=== PATIENT | female | born 1930 | race Caucasian/White ===

== ENCOUNTER 2017-02-08 12:19 | Inpatient (IN) | payer MEDICARE, OTHER ==
--- NOTE | ~2017-02-08 | EKG ---
PATIENT: MACEY JENSEN UNIT #: [id number] Ventricular Rate: 83 BPM Atrial Rate: 78 BPM QRS Duration: 158 ms Q-T Interval: 430 ms QTC Calculation(Bezet): 505 ms Calculated R [place]: -80 degrees Calculated T [place]: 66 degrees Diagnosis Line: Ventricular-paced rhythm with occasional Premature Diagnosis Line: ventricular complexes Diagnosis Line: Abnormal ECG Diagnosis Line: When compared with ECG of 30-SEP-2016 06:36, Diagnosis Line: Electronic ventricular pacemaker has replaced Diagnosis Line: Atrial fibrillation Diagnosis Line: Confirmed by ROSIE KITCHEN MD ([id number]) on 02/08/2017 Diagnosis Line: 10:47:04 PM INTERPRETING MD: IMTIAZ JAY
--- NOTE | ~2017-02-08 | HP ---
Unit #: [id number] #: [id number] Patient: MACEY JENSEN [id number] [facility] [address] [place], [place] [address] [id number] MR#: [id number] NAME: MACEY JENSEN ROOM: Age: 87 Sex: F Admission Date: 02/08/2017 : 1930 Attending Physician: Stanley De Jesus D.O. Primary Care Physician: Milagros Toribio M.D. HISTORY AND PHYSICAL CHIEF COMPLAINT Palpitations. HISTORY OF PRESENT ILLNESS The patient is an 87-year-old female with past medical history of hypertension, hyperlipidemia, coronary artery disease, CHF, sick sinus syndrome, atrial fibrillation, chronic anticoagulation, colonic AVM, diverticular disease, rheumatoid arthritis, who presented to the emergency department for evaluation of the above. The patient states that she has been feeling increasingly generally weak for about four to five days. She states that she has had palpitations which is not a new problem. She denies any chest pain. She has not had any falls or syncopal episodes. She has had decreased appetite for several months. She states that she has lost 30 pounds over the past two years. She denies any vomiting. She did have some diarrhea last week but that has resolved. She was treated for a sinus infection by her primary care physician with an unknown antibiotic recently. She completed the course of antibiotics. She has had some changes in her medications specifically decreasing the dose of carvedilol as well as Lasix. Upon arrival in the emergency department, the patient's pulse and blood pressure were 105 and 168/95 respectively. Laboratory is notable for a sodium of 122. She is being admitted to [facility] for evaluation and further treatment. PAST MEDICAL HISTORY 1. Admission to [facility] 09/29 through 10/01/2016 for shortness of breath thought to be secondary to heart failure. 2. Congestive heart failure. Per Cardiology consultation note, the patient had an echocardiogram 03/22/2016 that showed an ejection fraction of 55%. Mild aortic regurgitation, [id number] mitral regurgitation and tricuspid regurgitation. Right ventricular systolic pressure of approximately 36 mmHg. 3. Hypertension. 4. Hyperlipidemia. 5. Coronary artery disease. 6. Sick sinus syndrome with atrial fibrillation. She is status post pacemaker placement. She is also on chronic anticoagulation with Pradaxa. 7. History of colonic arteriovenous malformation. 8. Rheumatoid arthritis. Unit #: [id number] #: [id number] Patient: MACEY JENSEN PAST SURGICAL HISTORY 1. EGD and colonoscopy. 2. Tonsillectomy. 3. D and C. 4. Bilateral knee surgery. ALLERGIES 1. Ampicillin. 2. Hexachlorophene. 3. Atorvastatin. 4. Welchol. 5. Zetia. 6. Black dye. 7. IV dye. HOME MEDICATIONS Include: 1. Acetaminophen. 2. Pradaxa. 3. Zofran. 4. Coreg. 5. Colace. 6. MiraLAX. 7. Lasix. 8. Pepcid. 9. Aldactone. 10. Nitroglycerin. Home medications will need to be reviewed and verified. SOCIAL HISTORY The patient lives in assisted living. She is a former smoker. There is no alcohol use. She walks with a walker. Her code status is a FULL CODE. FAMILY HISTORY Notable for cerebrovascular accident. REVIEW OF SYSTEMS A complete review of systems is negative except as indicated in the HPI. Review of [facility] shows that the patient was seen by Nephrology on 05/05/2016 for hyponatremia. At that time, sodium was 123 and was thought to be hypovolemic in etiology. PHYSICAL EXAMINATION VITAL SIGNS: Temperature not recorded, pulse 105, respirations 18, blood pressure 168/95, oxygen saturation 96% on room air. GENERAL: The patient is a very pleasant female who is awake and alert in no acute distress. HEENT: Head is atraumatic. Mucous membranes are moist. NECK: Supple. Trachea is midline. LUNGS: Relatively clear to auscultation bilaterally with no increased work of breathing. HEART: Regular rate and rhythm. ABDOMEN: Soft, nontender. Bowel sounds present in all four quadrants. EXTREMITIES: Nontender with no pedal edema. NEUROLOGIC: Patient is awake and alert. She is oriented x3. She follows commands. PSYCHIATRIC: Mood and affect are normal. Patient is cooperative. Unit #: [id number] #: [id number] Patient: MACEY JENSEN SKIN OF EXAMINED AREAS: Warm and dry. DIAGNOSTIC STUDIES LABORATORY: Troponin less than 0.05. Urinalysis notable for trace leukocyte esterase. Comprehensive metabolic panel notable for sodium 122, chloride 89, magnesium 1.8. INR 1.2. TSH 0.56. BNP 411. Complete blood count is essentially normal. IMAGING: Chest x-ray shows mild cardiomegaly. CARDIOVASCULAR: EKG shows paced rhythm with occasional PVCs and a rate of 83 beats per minute. ASSESSMENT The patient is an 87-year-old female with: 1. General weakness. 2. Hyponatremia. The patient appears somewhat volume depleted. She has had decreased appetite as well as diarrhea. 3. Hypertension. 4. Hyperlipidemia. 5. Coronary artery disease. 6. Congestive heart failure with ejection fraction as noted above. 7. Sick sinus syndrome with atrial fibrillation, status post pacemaker placement. 8. Chronic anticoagulation with Pradaxa. 9. History of colonic arteriovenous malformation. 10. Diverticular disease. 11. Rheumatoid arthritis. 12. Former smoker. PLAN 1. Admit to intermediate level. 2. Healthy-heart diet if passes bedside swallow. 3. Normal saline at 75 mL per hour. 4. Fall precautions. 5. Bedrest. 6. PT/OT to evaluate and treat. 7. Urine sodium and osmolality. 8. Serum osmolality. 9. Repeat BMP later this evening to follow up hyponatremia. 10. Review medications that could be contributing to hyponatremia when medication reconciliation is available. 11. Consult Dr. Smyth regarding hyponatremia. 12. Serial cardiac enzymes. 13. Strict I's and O's. 14. Check temperature. 15. Repeat labs in the morning. 16. SCDs for DVT prophylaxis. 17. Additional workup and consultants based on above. Dictated by Unit #: [id number] #: [id number] Patient: MACEY JENSEN M.D. AW/jennifer TD: 02/08/2017 17:12 JOB #: [id number] HISTORY AND PHYSICAL Page 1 of 1 X Nabila Bernal MD HISTORY AND PHYSICAL
--- NOTE | ~2017-02-08 | DS ---
Unit #: [id number] #: [id number] Patient: MACEY JENSEN [id number] [address] [place], [place] [address] [id number] MR#: [id number] NAME: MACEY JENSEN. ROOM: 329 Age: 87 Sex: F Admission Date: 02/08/2017 : 1930 Discharge Date: 02/10/2017 Attending Physician: Frandy Johnson M.D. Primary Care Physician: Milagros Toribio M.D. DISCHARGE SUMMARY DISCHARGE DIAGNOSES 1. Symptomatic hyponatremia. 2. History of diastolic heart failure. 3. History of hypertension. 4. History of dyslipidemia. 5. History of coronary artery disease. 6. History of sick sinus syndrome with atrial fibrillation, has permanent pacemaker implanted. 7. Atrial fibrillation anticoagulated with Pradaxa. 8. History of colonic arteriovenous malformation. 9. Diverticular disease. 10. Rheumatoid disease. 11. Former smoker. 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 Loco of Nephrology. PROCEDURES None. IMAGING Chest x-ray on 02/08/17. Impression: Portable film demonstrates mild cardiomegaly, tortuous aorta, pacemaker device. The lungs are now clear of edema. There is horizontal linear density at the right base most consistent with atelectasis. No effusion seen. Overall, the lungs are improved from 05/30/16. LABS Today's labs: BMP: Glucose 92, BUN 16, creatinine 0.8, sodium 132, potassium 4.1, chloride 101, CO2 24, uric acid 4.5, calcium 9.1, magnesium 1.8. CBC with WBC of 5.8, RBC 3.4, hemoglobin 10.9, hematocrit 32.6, MCV 94.9, MCH 31.6, MCHC 33.3, RDW 15.9, platelet count 35, MPV 8.7. HOSPITAL COURSE The patient is a pleasant, 87-year-old female with past medical history of chronic atrial fibrillation anticoagulated with Pradaxa, history of sick sinus syndrome, has pacemaker, iron deficiency anemia, obstructing Schatzki ring on EGD, multiple AVM on colonoscopy, diverticulosis, essential hypertension, hyperlipidemia, rheumatoid arthritis, who presented to the emergency department due to palpitation. The patient stated that she had been feeling increasingly weak for about four to five days prior to hospitalization. She had palpitations which is not a new problem. She denies any chest pain. She has not had any falls or syncope episodes. She has had decreased appetite for the past several months. Unit #: [id number] #: [id number] Patient: MACEY JENSEN She stated she had lost 30 over the past two years. She denied any vomiting. She had some diarrhea the week prior to admission but that had resolved. She was treated for acute sinus infection by her primary care physician with an unknown antibiotic. She completed the medication, specifically, to reduce carvedilol as well as Lasix. Upon arrival to the emergency department, the patient's pulse and blood pressure were 101 with 160/95 respectively. The patient was noted to have sodium of 132. She was admitted for symptomatic hyponatremia and was seen in consultation with Nephrology, Dr. Loco, who thought that it was hypovolemic and hyponatremia due to poor oral intake as well as diarrhea. Most certainly, the Lasix and spironolactone are contributing to it. She was hydrated with saline. The following day her sodium had improved to 132. She is asymptomatic at this time and is ready to be discharged home. DISCHARGE CONDITION Stable, back to [facility]. DISCHARGE ACTIVITY Nonrestricted. DISCHARGE DIET Nonrestricted. The patient is to resume to a Heart Healthy diet as was prior to hospitalization. DISCHARGE MEDICATIONS 1. Tylenol 650 mg orally ever four hours as needed for pain. 2. Pradaxa 150 mg orally twice daily. 3. Zofran 4 mg orally every six hours as needed for nausea. 4. Coreg 75 mg orally twice daily. 5. Colace 100 mg orally as needed for constipation. 6. MiraLax 17 g orally daily as needed for constipation. 7. We will be holding spironolactone. 8. Reducing Lasix to 20 mg orally daily. 9. Omeprazole 20 mg orally daily. 10. Nitrostat 0.4 mg sublingual every five hours as needed for chest pain for max dose of three. Dictated by... Austin Cisse PA-C for Kayleigh Mello TD: 02/11/2017 11:39 JOB #: [id number] DISCHARGE SUMMARY Page 1 of 1 X X DISCHARGE SUMMARY
--- NOTE | ~2017-02-08 | CR72 ---
[facility] A Service of [facility] & [facility] RADIOLOGY TEXT RESULTS PATIENT: MACEY JENSEN LOCATION: [facility] 329-01 : [birth year] UNIT #: [id number] AGE: [address]: Frandy Johnson MD SEX: F ORDER DR: [id number] [facility] [address] [place], [place] [address] [id number] MR#: [id number] Acc #: [id number] NAME: MACEY JENSEN : 1930 SEX: F STUDY DATE/TIME: 02/08/2017 13:29 UNIT: [facility] ROOM: STUDY DESCRIPTION: CR Chest Single View Portable Attending Physician: Stanley De Jesus D.O. Ordering Physician: Stanley De Jesus D.O. Primary Care Physician: Milagros Toribio M.D. MEDICAL IMAGING REPORT This report is preliminary unless electronic signature is present EXAM Portable chest, 02/08/2017 13:29 hours HISTORY 87-year-old woman with 3-day history of shortness of air, palpitations. History of atrial fibrillation and pacemaker. COMPARISON 09/29/2016 FINDINGS Single upright portable view demonstrates stable mild cardiomegaly, tortuous aorta and dual lead pacer device. The pulmonary vascularity is normal. There is some horizontal linear atelectasis at the right base. There is no residual edema. There are no effusions. IMPRESSION Portable film demonstrates mild cardiomegaly, tortuous aorta and pacer device. The lungs are now clear of edema. There is horizontal linear density at the right base most consistent with atelectasis. No effusion seen. Overall the lungs are improved from 09/29/2016. Dictated by... Nikki Bradley M.D. THIS IS AN ELECTRONICALLY VERIFIED REPORT Nikki Bradley M.D. at 02/09/2017 9:28 AM Heather TD: 02/08/2017 15:27 JOB #: [id number] MEDICAL IMAGING REPORT [facility] A Service of [facility] & [facility] RADIOLOGY TEXT RESULTS PATIENT: MACEY JENSEN LOCATION: [facility] 329-01 : [birth year] UNIT #: [id number] AGE: [address]: Frandy Johnson MD SEX: F ORDER DR: Page 1 of 1 COPY
--- NOTE | ~2017-02-08 | CO ---
Unit #: [id number] #: [id number] Patient: MACEY RENEE [id number] [address] [place], [place] [address] [id number] I MR#: [id number] NAME: MACEY RENEE ROOM: 329 Age: 87 Sex: F Admission Date: 02/08/2017 : 1930 Attending Physician: Frandy Johnson M.D. Primary Care Physician: Milagros Toribio M.D. Consultation Date: 02/09/2017 CONSULTATION REPORT REASON FOR CONSULT Hyponatremia with an admission sodium of 122. HISTORY OF PRESENT ILLNESS Ms. Renee is an 87-year-old female, who is a resident of an assisted living facility, who came into the hospital complaining of palpitations and generalized weakness. She has not been feeling well for several days and has had some diarrhea which seems to be going around her living facility. She was also started on some antibiotics for a sinus infection. She does not recall the name of the antibiotic. In addition to the diarrhea, she has had some nausea but denies vomiting. She is on diuretics. She says that she has been drinking an excess amount of water because of the diarrhea to compensate. She denies any chest discomfort or shortness of breath. No swelling issues. No urinary complaints. Dr. Bernal had noted that she has lost 30 pounds but over a prolonged period of time. PAST MEDICAL HISTORY 1. Diastolic congestive heart failure with moderate mitral regurgitation. 2. Hypertension. 3. Hyperlipidemia. 4. Coronary artery disease. 5. Sick sinus syndrome with atrial fibrillation. 6. History of colon AVM, which causes bleeding. 7. Rheumatoid arthritis. PAST SURGICAL HISTORY 1. Pacemaker. 2. EGD and colonoscopy. 3. Tonsillectomy. 4. D and C. 5. Knee surgery. HOME MEDICATIONS 1. Colace 100 mg daily. 2. MiraLax daily. 3. Pradaxa 150 mg twice a day. 4. Coreg 25 mg twice a day. 5. Zofran p.r.n. 6. Nitrostat p.r.n. 7. Tylenol p.r.n. 8. Aldactone unknown dose daily. 9. Lasix 40 mg daily on hold. Unit #: [id number] #: [id number] Patient: MACEY RENEE. Omeprazole 20 mg daily. ALLERGIES She has multiple drug allergies including: Ampicillin, hexachlorophene, Lipitor, WelChol, Zetia, black dye, IV dye. FAMILY HISTORY Negative for any kidney problems. There is a history of stroke. SOCIAL HISTORY She lives in assisted living. She is a former smoker. No alcohol or drug abuse. She is full code at this time. REVIEW OF SYSTEMS A complete 12-point review of systems was completed with the above findings. In addition, she has not had any headaches or dizziness. No fevers or chills. No nose bleeds, sore throat, or earache. No chest pain. No hemoptysis. No bright red blood per rectum or melena. No dysuria or hematuria. No rashes or itching. No flank pain. No night sweats or hot flashes. No intolerance to heat or cold. No bleeding issues. Note: Weight loss over the last few years above. Unless otherwise indicated, the review of systems was negative. PHYSICAL EXAMINATION VITAL SIGNS: The patient is afebrile. Pulse 84, respiratory rate 18, blood pressure 147/95. GENERAL: This is a pleasant 87-year-old female sitting up in a chair, alert, answers questions appropriately and is in no acute distress. HEENT: Head is atraumatic, normocephalic. Eyes show pink conjunctivae with no sclerae icterus. No nasal drainage or nose bleed. Oropharynx is moist without thrush. NECK: Shows no JVD. No rigidity. HEART: Paced and regular with murmur present. No gallop or rub appreciated. LUNGS: Clear with no wheezing or rhonchi. Breathing is nonlabored. ABDOMEN: Soft, nontender, nondistended. Bowel sounds are present. EXTREMITIES: No lower extremity clubbing, cyanosis, or edema. SKIN: Dry with no rashes. MUSCULOSKELETAL: No CVA tenderness to palpation. NEUROLOGIC: Nonfocal with no gross deficits. She does have some generalized weakness. LYMPHATIC: There is no neck, cervical lymphadenopathy. PSYCHIATRIC: Mood and affect appear normal. DIAGNOSTIC STUDIES LABORATORY: Troponin this morning is negative. CK level normal. CBC was unremarkable with the hemoglobin of 11.7. Serum osmolality was 259. Last chemistry last night showed a sodium of 125 with a creatinine of 1. Urinalysis on admission showed a specific gravity of 1.005 with no blood or protein. Again, admission sodium was 122. TSH was normal. BNP was just 411. She has had prior sodium levels that were low when my partner, Dr. Smyth, saw her in May 2016. At that time, she had responded to saline. Also at that time, a urine osmolality that was done which was appropriate at 179 and the urine sodium was less than 10. IMAGING: Chest x-ray done yesterday showed no acute disease. ASSESSMENT AND PLAN Unit #: [id number] #: [id number] Patient: MACEY RENEE 1. Hyponatremia: This looks to be hypovolemic hyponatremia from poor p.o. intake and some diarrhea. She is also on Lasix which is on hold. She seems to be improving with saline which we will continue. We may need to back down on her diuretics to three days a week as her p.o. intake looks to be kind of tenuous at times. Recheck chemistry is pending this morning. We are still awaiting urine sodium and osmolality studies from this admission. I will also check a uric acid level. 2. History of congestive heart failure which is diastolic in nature. Patient appears to be well compensated and we can hold her diuretics for now. 3. Hypertension: The patient's blood pressure seems to be well controlled on her regimen at home. 4. History of pacemaker. 5. History of gastrointestinal bleed. 6. Recent sinus infection. 7. Diarrhea which seems to be improving. I would like to thank Dr. Bernal for this consultation and the opportunity to participate in the evaluation and care of Ms. Renee. Dictated by... Tc Loco Jr., M.D. WANDER/anshul TD: 02/09/2017 11:23 JOB #: [id number] CONSULTATION REPORT Page 1 of 1 X Tc Loco MD X CONSULTATION REPORT
[~2017-02-08 12:19] MED LIST: ACETAMINOPHEN PO; ACETAMINOPHEN650 M3 PO; ADVIL PM CAPLE1 EACH PO; ALBUTEROL17 GM INH; ALDACTONE25 MG PO; AMLODIPINE-VAL1 EAC2 PO; ANTIVERT PO; ASPIRIN81 M1 PO; ATIVAN PO; CALCIUM 600 +1 EAC3 PO; CALTRATE 600+D PO; CARVEDILOL25 MG PO; CARVEDILOL6.25 MG PO; CERTAGEN PO; CIPRO PO; COLESTIPOL HCL1 G PO; COREG PO; COREG3.125 MG PO; COREG6.25 MG PO; COUMADIN PO; COUMADIN10 MG PO; COUMADIN5 MG PO; DICYCLOMINE HCL10 MG PO; DICYCLOMINE HCL20 MG PO; DIOVAN PO; DIOVAN320 MG PO; DOCUSATE SODIU100 MG PO; EXFORGE; EXFORGE 5-320 M1 TAB PO; EXFORGE PO; FISH OIL 1,0001 CAP PO; FISH OIL 1,001000 MG PO; FISH OIL500 MG PO; FLAGYL PO; HYDROCODON-ACE1 EAC2 PO; HYDROCODONE-APA1 T33 PO; IMODIUM2 MG PO; LASIX PO; LEVAQUIN PO; LORAZEPAM1 MG PO; LORTAB 5/500 TA1 TA2 PO; LORTAB 7.5-3251 EACH PO; LORTAB 7.5-5001 TAB PO; MILK OF MAGNESIA PO; MIRALAX17 GM PO; MIRAPEX; MOBIC PO; MULTI-DAY VITAM1 TAB PO; MULTIPLE VITAMI1 T11 PO; MULTIVITAMIN1 UDCAP PO; MULTIVITAMINS W1 TAB PO; NAPROXEN PO; NEXIUM PO; NITROGLYGERIN0.4 MG SL; NITROSTAT0.4 MG SL; OMEPRAZOLE20 M2 PO; OS-CAL 500+D CA1 TA1 PO; PEPCID40 MG PO; PERCOCET 5/321 UDTAB PO; PRADAXA150 MG PO; PRILOSEC PO; PRILOSEC20 MG PO; PROTONIX PO; SENNA PO; SENNA S TABLET1 TAB PO; SENNA-S TABLE1 UDTAB PO; TRAMADOL HCL50 M1 PO; TYLENOL325 M1 PO; ULTRAM ER100 MG PO; VITAMIN D 4001 UDTAB PO; VITAMIN D PO; VITAMIN D1000 UNI1 PO; ZESTRIL2.5 M1 PO; ZOFRAN PO
[2017-02-08 13:34] LABS: BASOPHIL# 0.1 X10e3 (0-0.3); BASOPHIL% 0.9 % (0-2.5); EOSINOPHIL# 0.1 X10e3 (0-0.7); EOSINOPHIL% 1.5 % (0.0-7.0); HEMATOCRIT 36.5 % (35.0-45.0); HEMOGLOBIN 12.1 gm/dL (12.0-16.0); LYMPHOCYTE# 0.9 X10e3 (1.0-3.5); LYMPHOCYTE% 14.6 % (17.0-45.0); MEAN CELL VOLUME 93.9 FL (83-96); MEAN CORPUSCULAR HEMOGLOBIN 31.1 PG (28-34); MEAN CORPUSCULAR HGB CONC 33.1 g/dL (30-36); MEAN PLATELET VOLUME 9.2 FL (6.5-11.5); MONOCYTE# 0.7 X10e3 (0-1.0); MONOCYTE% 11.5 % (3.0-12.0); NEUTROPHIL# 4.4 X10e3 (1.5-7.1); NEUTROPHIL% 71.5 % (40-75); PLATELET COUNT 161 X10e3 (140-420); RED BLOOD COUNT 3.89 X10e (3.90-5.30); RED CELL DISTRIBUTION WIDTH 15.8 % (11.0-15.5); WHITE BLOOD COUNT 6.1 X10e3 (4.0-10.5)
[2017-02-08 13:34] LABS: POC - CKMB 1.7 ng/mL (0.0-7.9); POC - TROPONIN <0.05 ng/mL (<=0.05)
[2017-02-08 13:45] LABS: DIFF IND NO
[2017-02-08 14:06] LABS: URINE SOURCE CLEAN CATCH
[2017-02-08 14:17] LABS: INR 1.2; PARTIAL THROMBOPLASTIN TIME 46.2 SECONDS (23.5-31.3); PROTHROMBIN TIME (PATIENT) 13.1 SECONDS (9.6-11.5)
[2017-02-08 14:18] LABS: ALBUMIN SERUM 4.2 g/dL (3.5-5.0); BILIRUBIN, DIRECT 0.2 mg/dL (0.0-0.2); BILIRUBIN,INDIRECT 0.6 mg/dL (0.0-0.9); BILIRUBIN,TOTAL 0.8 mg/dL (0.2-2.0); CALCIUM SERUM 9.4 mg/dL (8.4-10.2); CREATININE SERUM 0.8 mg/dL (0.6-1.4); GLOM FILT RATE Estimated 65.4 mL/min (>60); MAGNESIUM 1.8 mg/dL (1.6-3.0); POTASSIUM 4.3 mmol/L (3.5-5.1); PROTEIN TOTAL SERUM 6.6 g/dL (6.0-8.3)
[2017-02-08 14:22] LABS: URINE APPEARANCE CLEAR; URINE BILIRUBIN NEG (NEG); URINE BLOOD NEG (NEG); URINE COLOR YELLOW; URINE GLUCOSE NEG (NEG); URINE KETONE NEG (NEG); URINE LEUKOCYTE ESTERASE TRACE (NEG); URINE NITRATE NEG (NEG); URINE PH 6.5 (5-8); URINE PROTEIN NEG (NEG); URINE SPECIFIC GRAVITY 1.005 (1.003-1.035); URINE UROBILINOGEN 0.2 MG/DL (NEG)
[2017-02-08 14:24] LABS: URBCS1 AUWI 0-2 /[HPF] (0-2); URINE BACTERIA AUWI NEG (NEGATIVE); URINE SQUAMOUS EPITHELIAL CELL NONE SEEN /[HPF]; UWBCS1 AUWI 0-2 (0-5)
[2017-02-08 14:27] LABS: CULTURE INDICATED? NO
[2017-02-08 15:20] LABS: POC - CKMB 1.8 ng/mL (0.0-7.9); POC - TROPONIN <0.05 ng/mL (<=0.05)
[2017-02-08] MEDS ORDERED: OMEPRAZOLE20 M1 PO (16:38)
[2017-02-08 20:36] LABS: CK TOTAL 35 IU/L (26-140)
[2017-02-08 20:40] LABS: CALCIUM SERUM 9.1 mg/dL (8.4-10.2); GLOM FILT RATE Estimated 49.9 mL/min (>60); POTASSIUM 3.6 mmol/L (3.5-5.1)
[2017-02-09 02:24] LABS: BASOPHIL# 0.1 X10e3 (0-0.3); BASOPHIL% 0.9 % (0-2.5); EOSINOPHIL# 0.1 X10e3 (0-0.7); EOSINOPHIL% 1.3 % (0.0-7.0); HEMATOCRIT 35.5 % (35.0-45.0); HEMOGLOBIN 11.7 gm/dL (12.0-16.0); LYMPHOCYTE# 1.2 X10e3 (1.0-3.5); LYMPHOCYTE% 17.8 % (17.0-45.0); MEAN CELL VOLUME 94.9 FL (83-96); MEAN CORPUSCULAR HEMOGLOBIN 31.1 PG (28-34); MEAN CORPUSCULAR HGB CONC 32.8 g/dL (30-36); MONOCYTE# 0.9 X10e3 (0-1.0); MONOCYTE% 12.8 % (3.0-12.0); NEUTROPHIL# 4.6 X10e3 (1.5-7.1); NEUTROPHIL% 67.2 % (40-75); PLATELET COUNT 153 X10e3 (140-420); RED BLOOD COUNT 3.74 X10e (3.90-5.30); RED CELL DISTRIBUTION WIDTH 15.9 % (11.0-15.5); WHITE BLOOD COUNT 6.9 X10e3 (4.0-10.5)
[2017-02-09 02:28] LABS: DIFF IND NO
[2017-02-09 02:37] LABS: CK TOTAL 38 IU/L (26-140)
[2017-02-09 11:56] LABS: BUN/CREATININE RATIO 18.18; CALCIUM SERUM 9.1 mg/dL (8.4-10.2); CREATININE SERUM 1.1 mg/dL (0.6-1.4); GLOM FILT RATE Estimated 44.5 mL/min (>60); POTASSIUM 4.1 mmol/L (3.5-5.1)
[2017-02-09 13:37] LABS: ALBUMIN SERUM 3.9 g/dL (3.5-5.0); BILIRUBIN,TOTAL 0.5 mg/dL (0.2-2.0); CREATININE SERUM 1.1 mg/dL (0.6-1.4); GLOM FILT RATE Estimated 44.5 mL/min (>60); POTASSIUM 4.1 mmol/L (3.5-5.1); PROTEIN TOTAL SERUM 6.5 g/dL (6.0-8.3)
[2017-02-09 13:40] LABS: BUN/CREATININE RATIO 18.18; CALCIUM SERUM 9.1 mg/dL (8.4-10.2)
[2017-02-10 01:36] LABS: SODIUM URINE RANDOM 76 mmol/L
[2017-02-10 02:55] LABS: OSMOLALITY,URINE 308 mOsmo/kg (250-900)
[2017-02-10 08:40] LABS: HEMATOCRIT 32.6 % (35.0-45.0); HEMOGLOBIN 10.9 gm/dL (12.0-16.0); MEAN CELL VOLUME 94.9 FL (83-96); MEAN CORPUSCULAR HEMOGLOBIN 31.6 PG (28-34); MEAN CORPUSCULAR HGB CONC 33.3 g/dL (30-36); MEAN PLATELET VOLUME 8.7 FL (6.5-11.5); RED BLOOD COUNT 3.44 X10e (3.90-5.30); RED CELL DISTRIBUTION WIDTH 15.9 % (11.0-15.5); WHITE BLOOD COUNT 5.8 X10e3 (4.0-10.5)
[2017-02-10 09:21] LABS: CALCIUM SERUM 9.1 mg/dL (8.4-10.2); CREATININE SERUM 0.8 mg/dL (0.6-1.4); GLOM FILT RATE Estimated 65.4 mL/min (>60); MAGNESIUM 1.8 mg/dL (1.6-3.0); POTASSIUM 4.1 mmol/L (3.5-5.1); URIC ACID 4.5 mg/dL (2.6-7.2)
[2017-02-10] MEDS ORDERED: LASIX20 MG PO (14:50)
== END 2017-02-10 16:46 | disposition home health service (06) | DRG 641 ==
LOC: CED 12:19 → CEDOF 16:00 → C3A PCU 17:35 → CED 17:35 → CEDOF 17:35 → C3A PCU 20:10
PROVIDERS: Emergency Medicine; Family Medicine; Internal Medicine Nephrology; Physician Assistant Medical
DX: E87.1 Hypo-osmolality and hyponatremia (principal); I11.0 Hypertensive heart disease with heart failure; I50.32 Chronic diastolic (congestive) heart failure; I49.5 Sick sinus syndrome; E78.5 Hyperlipidemia, unspecified; I25.10 Atherosclerotic heart disease of native coronary artery without angina pectoris; I48.2 Chronic atrial fibrillation; Z79.01 Long term (current) use of anticoagulants; Z95.0 Presence of cardiac pacemaker; K57.90 Diverticulosis of intestine, part unspecified, without perforation or abscess without bleeding; M06.9 Rheumatoid arthritis, unspecified; Z87.891 Personal history of nicotine dependence; R53.1 Weakness; I34.0 Nonrheumatic mitral (valve) insufficiency; Z82.3 Family history of stroke
CPT/HCPCS: 36415; 71010; 80048; 80053; 80076; 81003; 82550; 82553; 83735; 83880; 83930; 83935; 84300; 84443; 84484; 84550; 85025; 85027; 85610; 85730; 93005; 96360; 96361; 97162; 97165; 99285; G8978-GP; G8979-GP; G8980-GP; G8987-GO; G8988-GO; G8989-GO